=== PATIENT | male | born 1960 | race Caucasian/White ===

== ENCOUNTER → 2024-03-17 06:29 | Day surgery (SDC) | payer OTHER, SELFPAY ==
[2024-03-17 07:54] LABS: Glucose - Point of Care 110 mg/dl (70-99)
== END ==
LOC: GI 06:29
PROVIDERS: ATTENDING PHYSICIAN Internal Medicine
DX: Z12.11 Encounter for screening for malignant neoplasm of colon (principal); Z86.010 Personal history of colon polyps; K64.8 Other hemorrhoids; K57.30 Diverticulosis of large intestine without perforation or abscess without bleeding; D12.0 Benign neoplasm of cecum
CPT/HCPCS: 45385; 88305; 82962

== ENCOUNTER 2024-07-28 06:23 | Day surgery (SDC) | payer OTHER, SELFPAY ==
[2024-07-28 10:09] LABS: Glucose - Point of Care 125 mg/dl (70-99)
== END 2024-07-28 12:38 | disposition home or self-care (01) ==
LOC: GI 06:23
PROVIDERS: ATTENDING PHYSICIAN Internal Medicine
DX: Z12.11 Encounter for screening for malignant neoplasm of colon (principal); K57.30 Diverticulosis of large intestine without perforation or abscess without bleeding; K64.8 Other hemorrhoids; D12.0 Benign neoplasm of cecum; D12.3 Benign neoplasm of transverse colon; D12.5 Benign neoplasm of sigmoid colon; Z86.0101 Personal history of adenomatous and serrated colon polyps
CPT/HCPCS: 45385; 45380; 88305; 82962